=== PATIENT | female | born 1965 | race American Indian/Alaskan Native ===

== ENCOUNTER 2018-09-08 19:55 | Emergency (ER) | payer BC ==
--- NOTE | 2018-09-08 20:21 | Event Note ---
ED Screening Note Date of service: 09/08/18 Time: 20:15 ED Screening Note: 52 y/o female left leg pain. Feels like charley horse. Now having swelling to left leg swelling. No ch, sob. This initial assessment/diagnostic orders/clinical plan/treatment(s) is/are subject to change based on patients health status, clinical progression and re- assessment by fellow clinical providers in the ED. Further treatment and workup at subsequent clinical providers discretion. Patient/guardian urged not to elope from the ED as their condition may be serious if not clinically assessed and managed. Initial orders include:
[2018-09-09] MEDS ORDERED: CATAPRES PO ONE (00:55)
--- NOTE | 2018-09-09 01:01 | Emergency Department Report ---
ED General Adult HPI - General Chief complaint: Extremity Injury, Lower Stated complaint: RT CALF PAIN Time Seen by Provider: 09/09/18 00:48 Source: patient Mode of arrival: Ambulatory Limitations: No Limitations - History of Present Illness Initial comments: 52 years old female with no significant past medical history. Patient presented to the ER complaining of left leg, with pain and tenderness and started this morning. Patient denied any chest pain or shortness of breath. No history of DVTs or PE before. Patient denied any fever or chills. Severity scale (0 -10): 0 - Related Data Home Medications Medication Instructions Recorded Confirmed Last Taken Cyclobenzaprine [Flexeril] 10 mg PO TID PRN 11/22/12 11/22/12 11/20/12 Ibuprofen [Motrin] 800 mg PO TID PRN 11/22/12 11/22/12 11/20/12 Previous Rx's Medication Instructions Recorded Last Taken Type Amoxicillin/K Clav Tab [Augmentin 1 each PO Q12HR #20 tablet 11/22/12 Unknown Rx 500 MG TAB] Allergies Allergy/AdvReac Type Severity Reaction Status Date / Time No Known Allergies Allergy Unverified 11/22/12 09:09 ED Review of Systems ROS: Stated complaint: RT CALF PAIN Other details as noted in HPI Comment: All other systems reviewed and negative Constitutional: denies: chills, fever Cardiovascular: denies: chest pain, palpitations, dyspnea on exertion Gastrointestinal: denies: abdominal pain, nausea, vomiting Musculoskeletal: denies: back pain Neurological: denies: headache, weakness ED Past Medical Hx - Past Medical History Previous Medical History?: No - Surgical History Past Surgical History?: Yes Additional Surgical History: 'knot removed from breasts' - Social History Smoking Status: Never Smoker Substance Use Type: None - Medications Home Medications: Home Medications Medication Instructions Recorded Confirmed Last Taken Type Amoxicillin/K Clav Tab [Augmentin 1 each PO Q12HR #20 tablet 11/22/12 Unknown Rx 500 MG TAB] Cyclobenzaprine [Flexeril] 10 mg PO TID PRN 11/22/12 11/22/12 11/20/12 History Ibuprofen [Motrin] 800 mg PO TID PRN 11/22/12 11/22/12 11/20/12 History ED Physical Exam - General Limitations: No Limitations General appearance: alert, in no apparent distress - Head Head exam: Present: atraumatic, normocephalic, normal inspection - Eye Eye exam: Present: normal appearance, PERRL - ENT ENT exam: Present: normal exam, normal orophraynx, mucous membranes moist - Neck Neck exam: Present: normal inspection, full ROM. Absent: tenderness, meningismus, lymphadenopathy, thyromegaly - Respiratory Respiratory exam: Present: normal lung sounds bilaterally - Cardiovascular Cardiovascular Exam: Present: regular rate, normal rhythm, normal heart sounds - GI/Abdominal GI/Abdominal exam: Present: soft, normal bowel sounds. Absent: distended, tenderness, guarding, rebound, rigid, organomegaly, mass, bruit, pulsatile mass, hernia - Extremities Exam Extremities exam: Present: normal inspection, full ROM, normal capillary refill, calf tenderness - Back Exam Back exam: Present: normal inspection, full ROM. Absent: tenderness, CVA tenderness (R), CVA tenderness (L), muscle spasm, paraspinal tenderness, vertebral tenderness - Neurological Exam Neurological exam: Present: alert, oriented X3, CN II-XII intact - Skin Skin exam: Present: warm, intact, normal color ED Course Vital Signs 09/08/18 09/09/18 09/09/18 20:15 00:19 01:22 Temperature 98.6 F 98.3 F Pulse Rate 85 83 72 Respiratory 18 16 Rate Blood Pressure 217/109 187/94 Blood Pressure 199/85 [Left] O2 Sat by Pulse 98 99 Oximetry 09/09/18 02:35 Temperature 98 F Pulse Rate 78 Respiratory 16 Rate Blood Pressure Blood Pressure 145/71 [Left] O2 Sat by Pulse 100 Oximetry ED Medical Decision Making - Lab Data Result diagrams: 09/09/18 00:58 09/09/18 00:58 - Medical Decision Making 52 years old female with no significant past medical history. Patient presented to the ER complaining of left leg, with pain and tenderness and started this morning. Patient denied any chest pain or shortness of breath. No history of DVTs or PE before. Patient denied any fever or chills. Labs reviewed and unremarkable. Left lower extremity donor ultrasound is negative for a DVT. Patient received clonidine 0.1 mg for high blood pressure and it did respond very well. Patient will be discharged home with Norvasc 5 mg and a advised to follow-up with her primary care physician in the next 2-3 days and to return to the ER if symptoms are not improved. Critical care attestation.: If time is entered above; I have spent that time in minutes in the direct care of this critically ill patient, excluding procedure time. ED Disposition Clinical Impression: Left leg pain, Malignant hypertension Disposition: TO HOME OR SELFCARE Is pt being admited?: No Condition: Stable Instructions: Hypertension (ED), Leg Cramps (ED) Referrals: ROLLY COOPER MD [Primary Care Provider] - 3-5 Days
[2018-09-09 01:15] LABS: Basophils % (Auto) 0.4 % (0.0-1.8); Eosinophils # (Auto) 0.2 K/mm3 (0.0-0.4); Eosinophils % (Auto) 2.9 % (0.0-4.3); Hematocrit 39.5 % (30.3-42.9); Hemoglobin 13.1 gm/dl (10.1-14.3); Lymphocytes # (Auto) 2.1 K/mm3 (1.2-5.4); Lymphocytes % (Auto) 31.9 % (13.4-35.0); Mean Corpuscular HGB Conc 33 % (30-34); Mean Corpuscular Volume 87 fl (79-97); Monocytes # (Auto) 0.6 K/mm3 (0.0-0.8); Platelet Count 273 K/mm3 (140-440); Red Blood Count 4.52 M/mm3 (3.65-5.03); Red Cell Distribution Width 13.8 % (13.2-15.2)
[2018-09-09 01:33] LABS: INR 1.09 (0.87-1.13)
[2018-09-09 01:34] LABS: Partial Thromboplastin Time 29.7 Sec. (24.2-36.6)
[2018-09-09 01:59] LABS: BUN/Creatinine Ratio 16; Blood Urea Nitrogen 11 mg/dL (7-17); Hemolysis Index 6
--- NOTE | 2018-09-09 02:44 | Vascular Lab Report ---
PROCEDURE: US LEFT LOWER EXTREMITY VENOUS DUPLEX DOPPLER TECHNIQUE: Duplex Doppler ultrasound of the LEFT common and superficial femoral, popliteal, posterio r tibial, and proximal deep femoral and greater saphenous veins was attempted. Harkins scale imaging wit h and without compression, spectral waveform analysis with and without augmentation, and color flow D oppler were employed. CPT 54346-SV HISTORY: Swelling and pain left lower extremity COMPARISONS: None . FINDINGS: Deep Venous Thrombus: None . Superficial Venous Thrombus: None . Venous valvular incompetence: None . Soft tissue abnormality: None . Other: None . IMPRESSION: No evidence of deep venous thrombosis . This document is electronically signed by Karla Fagan DO., September 09 2018 02:42:29 AM ET
[2018-09-09 03:31] VITALS: BP 127/66
== END 2018-09-09 03:31 | disposition home or self-care (01) ==
LOC: ED 19:55
DX: M79.604 Pain in right leg (principal); I10 Essential (primary) hypertension; Z79.899 Other long term (current) drug therapy
CPT/HCPCS: 36415; 80048; 85025; 85379; 85610; 85730; 99284

== ENCOUNTER 2020-10-20 07:59 | Outpatient (CLI) | payer BC ==
--- NOTE | 2020-10-20 12:16 | Mammography Report ---
DIGITAL SCREENING MAMMOGRAM WITH CAD, 10/20/2020 CLINICAL INFORMATION / INDICATION: Routine screening mammography. TECHNIQUE: Digital bilateral 2D mammography was obtained in the craniocaudal and mediolateral obliqu e projections. This examination was interpreted with the benefit of Computer-Aided Detection analysis . COMPARISON: This is the patient's first mammogram. FINDINGS: Breast Density: The breasts are heterogeneously dense, which may obscure small masses. No dominant mass, suspicious calcifications, or architectural distortion in either breast. IMPRESSION: No mammographic evidence of malignancy. Follow up recommendation: Routine yearly BI-RADS Category 1: Negative. A "normal" or negative report should not discourage follow up or biopsy of a clinically significant f inding. A written summary of these findings will be mailed to the patient. The patient will be entered into a mammography reporting system which will generate a reminder letter for the patient's next appointmen t at the appropriate interval. The [employer] recommends yearly mammograms starting at age 40 and continuing as l bert as a woman is in good health. Breast MRI is recommended for women with an approximate 20-25% or greater lifetime risk of breast cancer, including women with a strong family history of breast or ova kasie cancer or who have been treated for Hodgkin's disease. Signer Name: Shelly Dickens MD Signed: 10/20/2020 12:11 PM Workstation Name: [id number]
== END 2020-10-20 08:00 | disposition home or self-care (01) ==
LOC: MAMMO 07:59
PROVIDERS: ATTEND Family Medicine Adult Medicine
DX: Z12.31 Encounter for screening mammogram for malignant neoplasm of breast (principal)
CPT/HCPCS: 77067